=== PATIENT | male | born 2005 | race Caucasian/White ===

== ENCOUNTER 2024-08-05 23:43 | Emergency (ER) | payer MEDICAID ==
[~2024-08-05] VITALS: Ht 167.6 cm; Wt 70.0 kg
[2024-08-05 23:43] VITALS: BP 148/93; PULSE 113; RESP 16; TEMP 98.2; O2SAT 98
== END 2024-08-06 00:53 ==
LOC: ER 23:43
DX: Z00.00 Encounter for general adult medical examination without abnormal findings (principal); Z65.3 Problems related to other legal circumstances
CPT/HCPCS: 99283